=== PATIENT | male | born 1950 | race Caucasian/White ===

== ENCOUNTER 2021-02-12 11:26 | Emergency (ER) | payer MEDICARE, OTHER ==
[~2021-02-12] VITALS: Ht 167.6 cm; Wt 99.8 kg
[~2021-02-12 11:26] MED LIST: ACIPHEX 20 MG T20 M1 PO; ADVIL100 M2 PO; AMARYL1 MG PO; ASPIRIN81 M2 PO; ATORVASTATIN CA80 MG PO; AZOR 10-20 MG1 EACH PO; BENAZEPRIL HCL20 MG PO; CHLORTHALIDONE25 MG PO; CLEOCIN HCL150 MG PO; EFFIENT10 MG PO; FISH OIL 1,001000 MG PO; FUROSEMIDE 40 M40 M1 PO; GLUCOPHAGE500 MG PO; HYDRALAZINE 5050 MG PO; HYTRIN 5 M5 MG/1 CAP PO; K-DUR10 MEQ PO; LEVOTHROID100 MC1 PO; NORVASC10 MG PO; TOPROL XL25 MG PO; TRULICITY0.75 MG/0. SQ; VITAMIN D-32000 UNIT PO; VITAMINC500 PO; VITCB500GO PO
[2021-02-12] MEDS ORDERED: DOXYCYCLINE 10100 MG PO (12:04)
[2021-02-12 12:22] VITALS: BP 149/84
== END 2021-02-12 12:23 | disposition home or self-care (01) ==
LOC: M.ERS 11:26
DX: S20.461A Insect bite (nonvenomous) of right back wall of thorax, initial encounter (principal); L08.9 Local infection of the skin and subcutaneous tissue, unspecified; I10 Essential (primary) hypertension; E78.5 Hyperlipidemia, unspecified; E03.9 Hypothyroidism, unspecified; K21.9 Gastro-esophageal reflux disease without esophagitis; E11.9 Type 2 diabetes mellitus without complications; Z95.5 Presence of coronary angioplasty implant and graft; Z88.8 Allergy status to other drugs, medicaments and biological substances; W57.XXXA Bitten or stung by nonvenomous insect and other nonvenomous arthropods, initial encounter; Y93.89 Activity, other specified; Y92.89 Other specified places as the place of occurrence of the external cause; Y99.8 Other external cause status

== ENCOUNTER → 2021-11-06 | Outpatient (CLI) | payer MEDICARE, OTHER ==
[~2021-11-06] MED LIST changes: +DOXYCYCLINE 10100 MG PO
== END ==
LOC: M.LAB 09:32
PROVIDERS: ATTEND Internal Medicine Gastroenterology
DX: Z01.812 Encounter for preprocedural laboratory examination (principal); Z20.822 Contact with and (suspected) exposure to COVID-19